=== PATIENT | male | born 1965 | race Caucasian/White ===

== ENCOUNTER 2020-10-19 08:58 | Emergency (ER) | payer OTHER ==
[2020-10-19 10:01] LABS: BILIRUBIN - TOTAL 1.1 mg/dL (0.2-1.0); BUN/CREAT RATIO (CALC) 12.3 RATIO; CREATININE 0.81 mg/dL (0.67-1.17); GLOBULIN (CALCULATION) 3.6 g/dL; POTASSIUM 3.9 mmol/L (3.5-5.1); TOTAL PROTEIN 7.6 g/dL (6.4-8.2)
[2020-10-19 10:07] LABS: BASOPHIL 1.2 % (0-2); EOSINOPHIL 1.6 % (0-5); HCT 45.7 % (42.0-52.0); HGB 15.8 g/dl (13.2-18.0); LYMPHOCYTE 20.9 % (15-48); MCH 32.6 pg (25.0-31.0); MCHC 34.6 g/dL (32.0-36.0); MCV 94.2 fL (78.0-100.0); MONOCYTE 8.1 % (0-12); MPV 9.1 fL (6.0-9.5); NEUTROPHIL 67.9 % (41-80); NRBC 0; PLT 284 K/uL (150-400); RBC 4.85 M/uL (4.70-6.00); RDW 12.4 % (11.5-14.0); WBC 6.8 K/uL (4.0-10.5)
[2020-10-19 10:19] LABS: BILIRUBIN NEGATIVE (NEGATIVE); BLOOD TRACE-INTACT Ery/uL (NEGATIVE); CLARITY CLEAR (CLEAR); COLOR YELLOW (YELLOW); GLUCOSE (U) NORMAL (NORMAL); LEUKOCYTES NEGATIVE Leu/uL (NEGATIVE); NITRITE NEGATIVE (NEGATIVE); PROTEIN NEGATIVE (NEGATIVE); UROBILINOGEN 0.2 mg/dL (0.2-1.0)
[2020-10-19 10:28] LABS: URINARY RBC RARE; URINARY WBC RARE
[2020-10-19 10:29] LABS: SQUAMOUS EPITHELIAL CELLS RARE
[2020-10-19] MEDS ORDERED: ROBAXIN750 MG PO (11:09)
[2020-10-19] MEDS ORDERED: BENTYL10 MG PO (11:09)
[2020-11-03] MEDS ORDERED: OXY-IR 5MG5 MG PO (10:49)
[2020-11-03] MEDS ORDERED: COLACE100 MG PO (10:49)
[2020-11-03] MEDS ORDERED: MOTRIN600 MG PO (10:49)
[2020-11-03] MEDS ORDERED: ACETAMINOPHEN500 M1 PO (10:49)
== END 2020-10-19 11:57 | disposition home or self-care (01) ==
LOC: FER 08:58
PROVIDERS: Emergency Medicine
DX: S30.1XXA Contusion of abdominal wall, initial encounter (principal); K40.90 Unilateral inguinal hernia, without obstruction or gangrene, not specified as recurrent; K62.5 Hemorrhage of anus and rectum; X58.XXXA Exposure to other specified factors, initial encounter
CPT/HCPCS: 36415; 80053; 81001; 83690; 85025; J1170; J2405; J7030; Q9967

== ENCOUNTER → 2020-11-03 | Day surgery (SDC) | payer OTHER ==
[~2020-11-03] VITALS: Ht 188 cm; Wt 86.2 kg
[~2020-11-03] MED LIST: ACETAMINOPHEN500 M1 PO; BENTYL10 MG PO; COLACE100 MG PO; MOTRIN600 MG PO; OXY-IR 5MG5 MG PO; ROBAXIN750 MG PO
[2020-11-03 07:59] LABS: HCT 42.9 % (42.0-52.0); HGB 15.1 g/dl (13.2-18.0); MCH 32.9 pg (25.0-31.0); MCHC 35.2 g/dL (32.0-36.0); MCV 93.5 fL (78.0-100.0); RBC 4.59 M/uL (4.70-6.00); RDW 12.2 % (11.5-14.0); WBC 6.5 K/uL (4.0-10.5)
[2020-11-03 08:09] LABS: INR 0.98 (0.9-1.2); PROTHROMBIN TIME 12.4 SECONDS (11.8-13.4); PTT 25.1 SECONDS (24.4-34.7)
[2020-11-03 08:14] LABS: BUN/CREAT RATIO (CALC) 11.6 RATIO; CREATININE 0.86 mg/dL (0.67-1.17); POTASSIUM 3.8 mmol/L (3.5-5.1)
== END | disposition home or self-care (01) ==
LOC: FAS 07:10
PROVIDERS: Student in an Organized Health Care Education/Training Program
DX: K40.90 Unilateral inguinal hernia, without obstruction or gangrene, not specified as recurrent (principal); K92.1 Melena; F41.9 Anxiety disorder, unspecified; Z79.899 Other long term (current) drug therapy
CPT/HCPCS: 36415; 80048; 85610; 85730; 93005; J0690; J1100; J1170; J1644; J1885; J2250; J2405; J2704; J3010; J7120

== ENCOUNTER → 2020-12-24 | Day surgery (SDC) | payer OTHER ==
[~2020-12-24] VITALS: Ht 188 cm; Wt 86.2 kg
== END | disposition home or self-care (01) ==
LOC: FAS 10:28
DX: K64.8 Other hemorrhoids (principal); Z98.890 Other specified postprocedural states; Z87.19 Personal history of other diseases of the digestive system
CPT/HCPCS: J2250; J2704; J7120